=== PATIENT | male | born 1950 | race Caucasian/White ===

== ENCOUNTER 2019-08-04 07:46 | Outpatient (RCR) | payer MEDICARE, OTHER, SELFPAY ==
--- NOTE | 2019-08-04 08:05 | PTOPEVAL ---
Thank you for referring this patient to [facility]. Please review, sign, date and return this plan of care KAELA. I agree with and certify that the following plan of care is medically necessary. Referring Physician Date Admitting Provider: Attending Provider: Channing Garcia MD Referring Provider: *PT Outpatient Evaluation Start: 08/04/19 07:11 Freq: Status: Active Protocol: Document 08/04/19 07:11 YOSELIN (Rec: 08/04/19 07:55 [id number]) Therapy Assessment Status Assessment Status Assessment Status Evaluation Evaluation Information Problem Diagnosis vertigo, dizziness Subjective Information Pt. reports that he has been Query Text:As Reported By Patient/ having brief bouts of Family dizziness for the past couple years. He states that turning his head quickly will bring on dizziness. He states that while in bed turning over may trigger his dizziness. He reports that his goal is to reduce his dizziness. Prior Level of Function Activity Level (Last 3 Months) Activity of Daily Living Ability Independent Indoor/Home Mobility Independent Community Mobility Independent Stairs Ability Independent Functional Cognition (Planning, Shopping Independent , Taking Medications) Cooking Yes Cleaning Yes Laundry Yes Shopping Yes Driving Yes Pain Assessment Timing of Pain Assessment Timing of Pain Assessment Pre-Treatment Self Report Self Report Pain Level 0 Pain Score Pain Score 0: Self Report Cervical and Lumbar ROM Cervical ROM Cervical Flexion (0-60) 40 Query Text:Active in Degrees Cervical Extension (0-70) 45 Query Text:Active in Degrees Cervical Lateral Flexion Right (0-50) 25 Query Text:Active in Degrees Cervical Lateral Flexion Left (0-50) 40 Query Text:Active in Degrees Cervical Rotation Right (0-90) 70 Query Text:Active in Degrees Cervical Rotation Left (0-90) 60 Query Text:Active in Degrees Vestibular Evaluation Vestibular Testing Gaze Stabilization with Fixation WNL Gaze Stabilization without Fixation WNL Joan-Hallpike Left WNL [place]-Hallpike Right WNL PT Clinical Summary Clinical Summary Protocol: PTEVCODE Clinical Summary Pt. enters the clinic to address long hx of vertigo. Pt. does have extensive
--- NOTE | 2019-08-04 15:05 | PTOPEVAL ---
Thank you for referring this patient to [facility]. Please review, sign, date and return this plan of care KAELA. I agree with and certify that the following plan of care is medically necessary. Referring Physician Date Admitting Provider: Attending Provider: Channing Garcia MD Referring Provider: *PT Outpatient Evaluation Start: 08/04/19 07:11 Freq: Status: Active Protocol: Document 08/04/19 07:11 YOSELIN (Rec: 08/04/19 07:55 [email or web address]) Therapy Assessment Status Assessment Status Assessment Status Evaluation Evaluation Information Problem Diagnosis vertigo, dizziness Onset 08/08/19 Subjective Information Pt. reports that he has been Query Text:As Reported By Patient/ having brief bouts of Family dizziness for the past couple years. He states that turning his head quickly will bring on dizziness. He states that while in bed turning over may trigger his dizziness. He reports that his goal is to reduce his dizziness. Prior Level of Function Activity Level (Last 3 Months) Activity of Daily Living Ability Independent Indoor/Home Mobility Independent Community Mobility Independent Stairs Ability Independent Functional Cognition (Planning, Shopping Independent , Taking Medications) Cooking Yes Cleaning Yes Laundry Yes Shopping Yes Driving Yes Pain Assessment Timing of Pain Assessment Timing of Pain Assessment Pre-Treatment Self Report Self Report Pain Level 0 Pain Score Pain Score 0: Self Report Cervical and Lumbar ROM Cervical ROM Cervical Flexion (0-60) 40 Query Text:Active in Degrees Cervical Extension (0-70) 45 Query Text:Active in Degrees Cervical Lateral Flexion Right (0-50) 25 Query Text:Active in Degrees Cervical Lateral Flexion Left (0-50) 40 Query Text:Active in Degrees Cervical Rotation Right (0-90) 70 Query Text:Active in Degrees Cervical Rotation Left (0-90) 60 Query Text:Active in Degrees Vestibular Evaluation Vestibular Testing Gaze Stabilization with Fixation WNL Gaze Stabilization without Fixation WNL Joan-Hallpike Left WNL [place]-Hallpike Right WNL PT Clinical Summary Clinical Summary Protocol: PTEVCODE Clinical Summary Pt. enters the clinic to address long hx of vertigo.
--- NOTE | 2019-08-04 16:06 | PTOPEVAL ---
Thank you for referring this patient to [facility]. Please review, sign, date and return this plan of care KAELA. I agree with and certify that the following plan of care is medically necessary. Referring Physician Date Admitting Provider: Attending Provider: Channing Garcia MD Referring Provider: *PT Outpatient Evaluation Start: 08/04/19 07:11 Freq: Status: Active Protocol: Document 08/04/19 07:11 YOSELIN (Rec: 08/04/19 07:55 YOSELIN [id number]) Therapy Assessment Status Assessment Status Assessment Status Evaluation Evaluation Information Problem Diagnosis vertigo, dizziness Onset 08/04/18 Subjective Information Pt. reports that he has been Query Text:As Reported By Patient/ having brief bouts of Family dizziness for the past couple years. He states that turning his head quickly will bring on dizziness. He states that while in bed turning over may trigger his dizziness. He reports that his goal is to reduce his dizziness. Prior Level of Function Activity Level (Last 3 Months) Activity of Daily Living Ability Independent Indoor/Home Mobility Independent Community Mobility Independent Stairs Ability Independent Functional Cognition (Planning, Shopping Independent , Taking Medications) Cooking Yes Cleaning Yes Laundry Yes Shopping Yes Driving Yes Pain Assessment Timing of Pain Assessment Timing of Pain Assessment Pre-Treatment Self Report Self Report Pain Level 0 Pain Score Pain Score 0: Self Report Cervical and Lumbar ROM Cervical ROM Cervical Flexion (0-60) 40 Query Text:Active in Degrees Cervical Extension (0-70) 45 Query Text:Active in Degrees Cervical Lateral Flexion Right (0-50) 25 Query Text:Active in Degrees Cervical Lateral Flexion Left (0-50) 40 Query Text:Active in Degrees Cervical Rotation Right (0-90) 70 Query Text:Active in Degrees Cervical Rotation Left (0-90) 60 Query Text:Active in Degrees Vestibular Evaluation Vestibular Testing Gaze Stabilization with Fixation WNL Gaze Stabilization without Fixation WNL Joan-Hallpike Left WNL [place]-Hallpike Right WNL PT Clinical Summary Clinical Summary Protocol: PTEVCODE Clinical Summary Pt. enters the clinic to address long hx of vertigo.
== END 2019-08-09 15:22 | disposition home or self-care (01) ==
LOC: CHSPT 07:46
PROVIDERS: Visit Provider Internal Medicine
DX: R42 Dizziness and giddiness (principal)
CPT/HCPCS: 97112; 97161

== ENCOUNTER 2020-02-03 11:52 | Outpatient (CLI) | payer MEDICARE, OTHER, SELFPAY | END 2020-02-03 11:53 | disposition home or self-care (01) | LOC: CHSIMG 11:55 | PROVIDERS: PCP Internal Medicine; Visit Provider Specialist | DX: I35.0 Nonrheumatic aortic (valve) stenosis (principal); Z95.2 Presence of prosthetic heart valve | CPT/HCPCS: C8929 ==

== ENCOUNTER 2020-07-19 11:23 | Outpatient (CLI) | payer MEDICARE, SELFPAY ==
[2020-07-19 11:32] LABS: Basophils Absolute Auto 0.03 K/mm3 (0.00-0.10); Basophils Percent Auto 0.4 % (0.0-1.0); Eosinophils Percent Auto 4.3 % (1.0-6.0); Hematocrit 45.5 % (37.0-46.0); Hemoglobin 14.6 g/dL (12.4-15.3); Immature Granulocyte Absolute 0.05 K/mm3 (0.00-0.00); Immature Granulocyte Percent A 0.7 % (0.0-0.0); Lymphocytes Absolute Auto 1.65 K/mm3 (1.10-4.50); Lymphocytes Percent Auto 23.8 % (18.0-42.0); Mean Corpuscular HGB Conc 32.1 g/dL (32.0-36.0); Mean Corpuscular Hemoglobin 30.5 pg (27.0-31.0); Mean Corpuscular Volume 95.2 fL (78.0-102.0); Monocytes Absolute Auto 0.64 K/mm3 (0.10-0.90); Monocytes Percent Auto 9.2 % (2.0-11.0); Neutrophils Absolute Auto 4.3 K/mm3 (1.7-7.2); Neutrophils Percent Auto 61.6 % (50.0-70.0); Platelet Count Result 171 K/mm3 (150-420); Red Blood Count 4.78 M/mm3 (4.70-6.10); Red Cell Distribution Width 13.4 % (11.6-14.4); White Blood Count 6.9 K/mm3 (4.8-10.8)
[2020-07-19 11:38] LABS: Add Urine Microscopic? NO; Appearance Urine Clear (Clear); Bilirubin Urine Negative (Negative); Blood Urine Negative (Negative); Color Urine Yellow (Yellow); Glucose Urine UA Negative (Negative); Ketones Urine Negative (Negative); Leukocyte Esterase Ur Negative (Negative); Nitrate Urine Negative (Negative); Protein Urine Negative (Negative); Specific Grav Ur >= 1.030 (1.010-1.020); Urobilinogen Urine 0.2 mg/dL (0.2-1.0)
[2020-07-19 12:39] LABS: Alanine Aminotransferase 27 U/L (16-63); Albumin Level 3.9 g/dL (3.4-5.0); Alkaline Phosphatase 96 U/L (46-116); Anion Gap 8 mmol/L (8-16); Aspartate Amino Transferase 21 U/L (15-37); Bilirubin,Total 0.4 mg/dL (0.00-1.00); Blood Urea Nitrogen 17 mg/dL (7-18); Carbon Dioxide 29 mmol/L (21-32); Chloride 104 mmol/L (98-108); Cholesterol 165 mg/dL (0-200); Estimated Glomerular Filt Rate > 60; Glucose 91 mg/dL (70-99); HDL Direct 41 mg/dL (40-60); LDL Cholesterol Calculated 97 mg/dL (<130); Osmolality Calculated 293 mOsm/kg (285-295); Potassium 4.7 mmol/L (3.5-5.1); Prostate Specific Antigen 3.7 ng/mL (< OR = 4.0); Sodium 141 mmol/L (136-145); Thyroid Stimulating Hormone 0.86 uIU/mL (0.36-3.74); Total Protein 7.1 g/dL (6.4-8.2); Triglycerides 133 mg/dL (0-150)
== END 2020-07-19 11:24 | disposition home or self-care (01) ==
LOC: CHSLAB 11:25
PROVIDERS: PCP Internal Medicine; Visit Provider Internal Medicine
DX: Z79.899 Other long term (current) drug therapy (principal); I10 Essential (primary) hypertension; E78.5 Hyperlipidemia, unspecified; Z12.5 Encounter for screening for malignant neoplasm of prostate; Z00.00 Encounter for general adult medical examination without abnormal findings
CPT/HCPCS: 36415; 80053; 80061; 81003; 84153; 84443; 85025; G0103

== ENCOUNTER 2021-03-16 10:04 | Outpatient (CLI) | payer MEDICARE, SELFPAY ==
[2021-03-16 10:59] LABS: Alanine Aminotransferase 23 U/L (16-63); Albumin Level 3.9 g/dL (3.4-5.0); Alkaline Phosphatase 90 U/L (46-116); Anion Gap 8 mmol/L (8-16); Aspartate Amino Transferase 18 U/L (15-37); Bilirubin,Total 0.5 mg/dL (0.00-1.00); Blood Urea Nitrogen 17 mg/dL (7-18); Calcium 8.9 mg/dL (8.5-10.1); Carbon Dioxide 30 mmol/L (21-32); Chloride 104 mmol/L (98-108); Cholesterol 158 mg/dL (0-200); Estimated Glomerular Filt Rate > 60; Glucose 93 mg/dL (70-99); HDL Direct 45 mg/dL (40-60); LDL Cholesterol Calculated 96 mg/dL (<130); Osmolality Calculated 295 mOsm/kg (285-295); Potassium 4.9 mmol/L (3.5-5.1); Prostate Specific Antigen 3.1 ng/mL (< OR = 4.0); Sodium 142 mmol/L (136-145); Total Protein 6.8 g/dL (6.4-8.2); Triglycerides 87 mg/dL (0-150)
== END 2021-03-16 10:05 | disposition home or self-care (01) ==
LOC: CHSLAB 10:06
PROVIDERS: PCP Internal Medicine; Visit Provider Internal Medicine
DX: E78.5 Hyperlipidemia, unspecified (principal); R97.20 Elevated prostate specific antigen [PSA]
CPT/HCPCS: 36415; 80053; 80061; 84153

== ENCOUNTER 2021-04-10 19:46 | Emergency (ER) | payer MEDICARE, OTHER, SELFPAY ==
--- NOTE | ~2021-04-10 | CT_ITS ---
EXAMINATION: CT diagnostic chest w con DATE: 04/10/2021 22:14 INDICATION: Chest pain. Sharp pain at mid sternal area while eating. (History of aortic valve replace ment). TECHNIQUE: Computed tomography (CT) of the chest was performed with 75 cc Omnipaque 350 intravenous c ontrast. Automated exposure control and iterative reconstruction technique were employed. Exam dose: 841.69 mGy-cm total exam DLP. COMPARISON: 07/30/2018 PA and lateral chest FINDINGS: Mild bilateral gynecomastia. There is elevated right diaphragm and minimal atelectasis at t he right lung base. Calcified left upper lobe pulmonary granuloma. No pulmonary infiltrate or consoli dation. No hilar or mediastinal mass lesion or lymphadenopathy. Normal heart size. There is prominent coronary artery calcification. Status post aortic valve replace ment. No thoracic aortic aneurysm or dissection Normal morphology of the adrenal glands. Diffuse idiopathic skeletal hyperostosis of the thoracic spine. IMPRESSION: Mild bilateral gynecomastia Status post post sternotomy/aortic valve replacement Coronary artery calcification Elevated right diaphragm and associated minimal atelectasis at the right lung base Reviewed, dictated and finalized at [facility]. Reviewed, dictated and finalized at [facility]. IMPRESSION: Mild bilateral gynecomastia Status post post sternotomy/aortic valve replacement Coronary artery calcification Elevated right diaphragm and associated minimal atelectasis at the right lung b ase
[2021-04-10 19:50] VITALS: BP 161/88; PULSE 65; RESP 18; TEMP 35.9; O2SAT 94
--- NOTE | 2021-04-10 19:58 | ECG_ITS ---
Measurements Intervals [place] Rate: 64 P: 3 NH: 177 QRS: 39 QRSD: 99 T: 61 QT: 410 QTc: 426 Interpretive Statements SINUS RHYTHM BASELINE ARTIFACT- I, II, III, AVF, V1-V2, V5-V6 NORMAL ECG Electronically Signed On 04-10-2021 20:20:17 CDT by Juan Antonio Westbrook D.O.
[2021-04-10 20:00] VITALS: PULSE 70
[2021-04-10] MEDS: PANTOPRAZOLE SODIUM IV 40 MG VIAL 80 MG IV PUSH (20:35)
[2021-04-10 20:52] LABS: Basophils Absolute Auto 0.04 K/mm3 (0.00-0.10); Basophils Percent Auto 0.5 % (0.0-1.0); Eosinophils Absolute Auto 0.28 K/mm3 (0.02-0.50); Eosinophils Percent Auto 3.2 % (1.0-6.0); Hematocrit 45.8 % (37.0-46.0); Hemoglobin 14.9 g/dL (12.4-15.3); Immature Granulocyte Absolute 0.05 K/mm3 (0.00-0.00); Immature Granulocyte Percent A 0.6 % (0.0-0.0); Lymphocytes Absolute Auto 1.84 K/mm3 (1.10-4.50); Lymphocytes Percent Auto 21.3 % (18.0-42.0); Mean Corpuscular HGB Conc 32.5 g/dL (32.0-36.0); Mean Corpuscular Hemoglobin 30.4 pg (27.0-31.0); Mean Corpuscular Volume 93.5 fL (78.0-102.0); Mean Platelet Volume 8.9 fl (8.7-11.0); Monocytes Absolute Auto 0.89 K/mm3 (0.10-0.90); Monocytes Percent Auto 10.3 % (2.0-11.0); Neutrophils Absolute Auto 5.6 K/mm3 (1.7-7.2); Neutrophils Percent Auto 64.1 % (50.0-70.0); Platelet Count Result 160 K/mm3 (150-420); Red Cell Distribution Width 14.4 % (11.6-14.4); White Blood Count 8.7 K/mm3 (4.8-10.8)
[2021-04-10 21:10] LABS: Alanine Aminotransferase 18 U/L (16-63); Albumin Level 3.7 g/dL (3.4-5.0); Alkaline Phosphatase 96 U/L (46-116); Anion Gap 10 mmol/L (8-16); Aspartate Amino Transferase 13 U/L (15-37); Bilirubin,Total 0.3 mg/dL (0.00-1.00); Blood Urea Nitrogen 16 mg/dL (7-18); Calcium 8.8 mg/dL (8.5-10.1); Carbon Dioxide 28 mmol/L (21-32); Chloride 104 mmol/L (98-108); Estimated CRCL calculation 76 ml/min; Estimated Glomerular Filt Rate > 60; Glucose 115 mg/dL (70-99); Lipase 100 U/L (73-393); Osmolality Calculated 296 mOsm/kg (285-295); Potassium 4.4 mmol/L (3.5-5.1); Sodium 142 mmol/L (136-145); Total Protein 7.3 g/dL (6.4-8.2); Troponin I 6.3 ng/L (0.00-60.4)
--- NOTE | 2021-04-10 22:58 | ED.CHESTPAIN ---
HPI - Chest Pain General Chief Complaint: Chest Pain Stated Complaint: pain in chest, trouble swallowing Time Seen by Provider: 04/10/21 20:15 Source: patient and family Mode of arrival: ambulatory Limitations: no limitations History of Present Illness HPI narrative: 70-year-old man with a history of aortic stenosis status post bovine valve replacement and ascending aorta repair comes in today complaining of severe mid chest pain that occurred while he was eating dinner this evening. He was eating ribs and after he swallowed he had severe pain and sweating. He states that he regurgitated some food. He tried to swallow afterwards but had some pain with that. He has not drank nor has he drooled or regurgitated since. He denies prior similar symptoms. MD complaint: chest pain Pertinent past history: known aortic aneurysm Onset (ago): minute(s) (30) Timing of current episode: constant and now resolved Prior episodes: No Onset: after eating ( While eating) Pain location: substernal Pain radiation: none Severity: severe Quality: sharp Relieving factors: nothing Associated symptoms: diaphoresis Risk Factors Coronary artery disease risk factors: none Related Data Home Medications Medication Instructions Recorded Confirmed aspirin 81 mg PO DAILY 04/10/21 04/10/21 calcitriol 0.5 mcg PO DAILY 04/10/21 04/10/21 celecoxib 200 mg PO DAILY 04/10/21 04/10/21 fluticasone propionate 1 spray INTRANASAL DAILY 04/10/21 04/10/21 [id number] 1 inh INHALATION DAILY 04/10/21 04/10/21 [Trelegy Ellipta] meclizine 50 mg PO BID 04/10/21 04/10/21 montelukast 10 mg PO DAILY 04/10/21 04/10/21 pravastatin 40 mg PO DAILY 04/10/21 04/10/21 propranolol 120 mg PO DAILY 04/10/21 04/10/21 Allergies Allergy/AdvReac Type Severity Reaction Status Date / Time codeine Allergy Unknown Verified 04/10/21 20:04 Review of Systems Review of Systems: All systems reviewed & are unremarkable except as noted in HPI and below Constitutional: Constitutional: Denies chills and Denies fever(s) Eyes: Eyes: Denies change in vision and Denies photophobia ENT: Reports dysphagia, Denies nasal congestion and Denies sore throat Cardiovascular: Cardiovascular: Reports chest pain and Denies radiating jaw, neck or arm pain Respiratory: Respiratory: Denies cough, Denies dyspnea and Denies wheezing Gastrointestinal: Gastrointestinal: Denies abdominal pain, Denies nausea and Denies vomiting Genitourinary: Genitourinary: Denies dysuria and Denies urinary frequency Integumentary/Breasts: Skin/Breast: Denies pruritus, Denies erythema and Denies rash Hematologic/Lymphatic: Hematologic/Lymphatic: Denies easy bleeding and Denies easy bruising Allergic/Immunologic: Allergic/Immunologic: Denies lip swelling and Denies throat swelling PMFSH Past Medical History Medical History Aortic stenosis Ascending aortic aneurysm Dyslipidemia Hypertension Surgical History Surgical History Aortic valve replaced bovine History of repair of thoracic aortic aneurysm Social History Social History (Updated 04/10/21 @ 23:05 by Salty Jeong MD) Smoking status: Never smoker Substance use: never Living arrangements: with family Exam Const: General: healthy appearing, no acute distress and alert Orientation/consciousness: patient oriented x3 Limitations: no limitations HENMT: Head: normal to inspection Face and sinus: normal facial exam Mouth: Yes moist mucous membranes Throat: posterior oropharynx normal Eyes: Conjunctivae: conjunctivae normal Pupils: Equal, round and reactive pupils present EOM: EOMs intact bilaterally Resp: Effort & Inspection: normal respiratory effort and not labored Auscultation: clear to auscultation bilaterally, no rales, no rhonchi and no wheezes Cardio: Rate: regular rate Rhythm: regular rhythm Hea
[2021-04-10 23:15] VITALS: BP 154/91; PULSE 58; RESP 20; TEMP 36.6; O2SAT 97
== END 2021-04-10 23:23 | disposition home or self-care (01) ==
PROVIDERS: Emergency Provider Emergency Medicine; PCP Internal Medicine
DX: K22.2 Esophageal obstruction (principal); E78.5 Hyperlipidemia, unspecified; I10 Essential (primary) hypertension
CPT/HCPCS: 36415; 71260; 80053; 83690; 84484; 85025; 93005; 96374; 99283; 99284; C9113; Q9967

== ENCOUNTER 2021-06-13 18:33 | Emergency (ER) | payer MEDICARE, OTHER, SELFPAY ==
--- NOTE | ~2021-06-13 | XR_ITS ---
XR finger 5th LT min 2V 06/13/2021 21:11 Indication: Post reduction left fifth finger Procedure: 4 views left fifth anterior Comparison: 06/13/2021 Findings: Interval reduction of the left fifth finger at the PIP joint. There is a volar plate avulsi on fracture base of the middle phalanx. There is a small foreign body in the soft tissues dorsal to t he fifth finger. Fracture involving the base of the fourth proximal phalanx reidentified. Impression: 1: Interval reduction of the fifth finger at the PIP joint without evidence for volar plate avulsion fracture. Reviewed, dictated and finalized at [facility]. Impression: 1: Interval reduction of the fifth finger at the PIP joint without evidence for volar plate avulsion fracture.
--- NOTE | ~2021-06-13 | XR_ITS ---
XR hand LT min 3V 06/13/2021 19:30 Indication: Left hand pain after fall Procedure: 4 views left hand Comparison: No prior studies for comparison. Findings: There is dorsal dislocation of the fifth finger at the PIP and DIP joints. There is a mildl y displaced fracture proximal aspect of the fourth proximal phalanx without definite intra-articular extension. There is mild dorsal angulation. There is a probable avulsion fracture ventral base of the fourth middle phalanx near the PIP joint. Mild polyarticular osteoarthritis. Impression: 1: Mildly displaced extra-articular fracture base of the left fourth proximal phalanx with dorsal ang ulation. Avulsion fracture ventral base fourth middle phalanx. 2: Dorsal dislocation of the left fifth finger at the PIP and DAP joints. No definite fracture is eran ntified. Reviewed, dictated and finalized at [facility]. Impression: 1: Mildly displaced extra-articular fracture base of the left fourth proximal p halanx with dorsal angulation. Avulsion fracture ventral base fourth middle pha lanx. 2: Dorsal dislocation of the left fifth finger at the PIP and DAP joints. No de finite fracture is identified.
--- NOTE | ~2021-06-13 | XR_ITS ---
XR finger 5th LT min 2V 06/13/2021 20:51 Indication: Left fifth finger pain Procedure: 4 views left fifth finger Comparison: 06/13/2021 Findings: There is mildly displaced extra-articular fracture proximal aspect of the fourth proximal p halanx. Interval reduction of the fifth finger at the DIP joint. There is persistent dorsal dislocati on at the fifth PIP with probable fracture ventral base of the middle phalanx. Impression: 1: Persistent dislocation of the left fifth finger at the PIP joint with probable displaced fracture volar base of the middle phalanx. Reviewed, dictated and finalized at location [facility]. Impression: 1: Persistent dislocation of the left fifth finger at the PIP joint with probab le displaced fracture volar base of the middle phalanx.
[2021-06-13 19:00] VITALS: BP 144/71; PULSE 66; RESP 20; TEMP 36.2; O2SAT 93
--- NOTE | 2021-06-13 19:05 | ED.GENADULT ---
HPI - General Adult General Chief complaint: Extremity Injury, Upper Stated complaint: hand injury Source: patient Mode of arrival: ambulatory History of Present Illness HPI narrative: Thuan is a 70M with a PMH of asthma, COPD, JEISON, HTN and HLD that presented to the ER after he fell on the road. He tried to jump a ditch but landed on his hand and sustained a laceration on the anterior side of his left 4th digit. He cannot flex the finger and has decreased sensation. He denied pain meds. No other injuries reported. Related Data Home Medications Medication Instructions Recorded Confirmed aspirin 81 mg PO DAILY 04/10/21 06/13/21 calcitriol 0.5 mcg PO DAILY 04/10/21 06/13/21 celecoxib 200 mg PO DAILY 04/10/21 06/13/21 fluticasone propionate 1 spray INTRANASAL DAILY 04/10/21 06/13/21 [id number]-[id number] 1 inh INHALATION DAILY 04/10/21 06/13/21 [Trelegy Ellipta] meclizine 50 mg PO BID 04/10/21 06/13/21 montelukast 10 mg PO DAILY 04/10/21 06/13/21 pravastatin 40 mg PO DAILY 04/10/21 06/13/21 propranolol 120 mg PO DAILY 04/10/21 06/13/21 tadalafil 5 mg tablet 5 mg PO DAILY 05/25/21 06/13/21 Allergies Allergy/AdvReac Type Severity Reaction Status Date / Time codeine Allergy Unknown Verified 05/25/21 12:49 metoprolol [From Toprol XL] AdvReac Severe Gastrointestinal Verified 05/25/21 12:53 Upset Review of Systems Constitutional: Constitutional: Reports no additional constitutional complaints Eyes: Eyes: Reports no additional eye complaints ENT: Reports system reviewed and no additional complaints, except as documented Cardiovascular: Cardiovascular: Reports no additional cardiovascular complaints Respiratory: Respiratory: Reports no additional respiratory complaints Gastrointestinal: Gastrointestinal: Reports no additional gastrointestinal complaints Genitourinary: Genitourinary: Reports no additional male genitourinary complaints Musculoskeletal: Musculoskeletal: Reports as per HPI Integumentary/Breasts: Skin/Breast: Reports as per HPI Neurologic: Reports system reviewed and no additional complaints, except as documented Psychiatric: Psychiatric: Reports no additional psychiatric complaints Endocrine: Endocrine: Reports no additional endocrine complaints Hematologic/Lymphatic: Hematologic/Lymphatic: Reports no additional hematologic/lymphatic complaints Allergic/Immunologic: Allergic/Immunologic: Reports no additional allergic/immunologic complaints [facility] Past Medical History Medical History Aortic stenosis Ascending aortic aneurysm Dyslipidemia Hereditary essential tremor Hypertension Vertigo Surgical History Surgical History Aortic valve replaced bovine 10/2017 History of repair of thoracic aortic aneurysm Family History Family History Father , age 82 from heart problems Hypertension Cerebrovascular accident Mother , age 92 from CVA Asthma Hypertension Cerebrovascular accident Sibling , 1 from stroke Asthma Hypertension Grandparent Throat cancer Grandparent Lung cancer Social History Social History Smoking status: Never smoker Substance use: never 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 Exam Const: General: no acute distress and alert Orientation/consciousness: patient oriented x3 Limitations: No altered mental status HENMT: Head: normal to inspection Other: atraumatic Eyes: Conjunctivae: conjunctivae normal Pupils: Equal, round and reactive pupils present Neck: Neck: normal visual inspection Chest: Chest palpation & inspection: normal inspection of the chest Resp: Effort & Inspection: normal respiratory effort, not labored and not tac
[2021-06-13] MEDS: LIDOCAINE HCL 1% LOCAL INJ 20 ML VIAL 3 ML INFILTRATE ×2 (19:35→20:30)
[2021-06-13] MEDS: AMOXICILLIN/CLAVULANATE K 875-125 MG TAB 1 TABLET PO (20:30)
[2021-06-13 22:05] VITALS: BP 158/81; PULSE 70; RESP 18; TEMP 36.6; O2SAT 93
== END 2021-06-13 22:07 | disposition home or self-care (01) ==
PROVIDERS: Emergency Provider Family Medicine; PCP Internal Medicine
DX: S62.615A Displaced fracture of proximal phalanx of left ring finger, initial encounter for closed fracture (principal); S63.287A Dislocation of proximal interphalangeal joint of left little finger, initial encounter; S61.215A Laceration without foreign body of left ring finger without damage to nail, initial encounter; W19.XXXA Unspecified fall, initial encounter; E78.5 Hyperlipidemia, unspecified; I10 Essential (primary) hypertension
CPT/HCPCS: 12001; 26770; 73130; 73140; 99283; 99285; A9270

== ENCOUNTER 2021-06-22 07:51 | Outpatient (RCR) | payer MEDICARE, OTHER, SELFPAY | END 2021-06-22 18:00 | disposition left against medical advice (07) | LOC: CHSOT 07:51 | PROVIDERS: PCP Internal Medicine | DX: S62.615D Displaced fracture of proximal phalanx of left ring finger, subsequent encounter for fracture with routine healing (principal) | CPT/HCPCS: 99199 ==